=== PATIENT | female | born 1945 | race Caucasian/White ===

== ENCOUNTER 2017-03-23 07:19 | Day surgery (SDC) | payer MEDICARE ==
[2017-03-23] MEDS ORDERED: LIDOCAINE 2% MDV (20MG/ML) 20ML VIAL IV ONE (14:00)
[2017-03-23] MEDS ORDERED: BUPIVACAINE 0.5% W/EPI MPF 30 ML VIAL IVP ONE (14:00)
[2017-03-23] MEDS ORDERED: DEXAMETHASONE PRESERVATIVE FREE 10MG/ML VIAL IV ONE (14:00)
[2017-03-23] MEDS ORDERED: LIDOCAINE 1% W/EPI 1:200,000 MPF 30ML SQ ONE (14:00)
[2017-03-23] MEDS ORDERED: FENTANYL PF 100MCG/2ML VIAL IV ONE (14:00)
[2017-03-23] MEDS ORDERED: PROPOFOL 10 MG/ML VIAL IV ONE (14:00)
[2017-03-23] MEDS ORDERED: MIDAZOLAM HCL 2MG/2ML VIAL IV ONE (14:00)
--- NOTE | 2017-03-23 22:29 | Operative Note - Ferro ---
DATE OF SURGERY: 03/23/17 PREOPERATIVE DIAGNOSIS: CERVICAL SPONDYLOSIS WITHOUT MYELOPATHY, ICD-10 CODE = M47.812. OPERATION: RADIOFREQUENCY RHIZOTOMY BILATERAL CERVICAL FACETS 4-5 AND 5-6. SURGEON: THADDEUS AC D.O. ANESTHESIA: LOCAL SEDATION. ANESTHESIA PROVIDER: AAKASH NAVA CRNA. INDICATION: This patient presents with primary neck pain. Examination shows diffuse tenderness of the cervical spine. Range of motion does causes pain in the neck with extension. Diagnostic studies including standard imaging and MRIs showed diffuse multiple level spondylosis. A facet series with 75 to 90% pain control. Due to the failure of therapy and the success of the facet series, the patient presents for rhizotomy for more termite control representative relief. PROCEDURE: Intravenous line, vital sign monitoring, IV sedation. Prepped and draped in sterile technique. Under imaging, the facets at 4-5 and 5-6 were identified and marked bilaterally and infiltrated. A #22 gauge rhizotomy cannula positioned. Stimulation trials conducted. Rhizotomy burn performed. Local with anti-inflammatory into the site. Topical antibiotics. Sterile dressing applied. Will monitor and evaluate. cc: Dr. Juanita Brink JOB NUMBER: [id number] MTDD
== END 2017-03-23 10:00 | disposition home or self-care (01) ==
LOC: SUR 07:19
PROVIDERS: ATTEND Pain Medicine Interventional Pain Medicine
DX: M47.812 Spondylosis without myelopathy or radiculopathy, cervical region (principal); E03.9 Hypothyroidism, unspecified; E78.00 Pure hypercholesterolemia, unspecified

== ENCOUNTER 2019-02-07 06:00 | Day surgery (SDC) | payer MEDICARE ==
[2019-02-07] MEDS ORDERED: LIDOCAINE 2% MDV (20MG/ML) 20ML VIAL IV ONE (06:01)
[2019-02-07] MEDS ORDERED: PROPOFOL 10 MG/ML VIAL IV ONE (06:01)
[2019-02-07] MEDS ORDERED: MIDAZOLAM HCL 2MG/2ML VIAL IV ONE (06:01)
[2019-02-07] MEDS ORDERED: FENTANYL PF 100MCG/2ML VIAL IV ONE (06:01)
[2019-02-07] MEDS ORDERED: RINGERS SOLUTION,LACTATED 1,000 ML IV ONE (06:30)
[2019-02-07] MEDS ORDERED: LIDOCAINE 1% W/EPI 1:100,000 MDV 20 ML VIAL SQ ONE (07:42)
[2019-02-07] MEDS ORDERED: DEXAMETHASONE PRESERVATIVE FREE 10MG/ML VIAL SQ ONE (07:43)
[2019-02-07] MEDS ORDERED: BUPIVACAINE 0.5% W/EPI MPF 30 ML VIAL SQ ONE (07:43)
--- NOTE | 2019-02-09 09:00 | Operative Note ---
DATE OF SURGERY: 02/07/2019 PREOPERATIVE DIAGNOSIS: Cervical spondylosis without myelopathy, ICD10 code M47.812. OPERATION: Radiofrequency rhizotomy of bilateral cervical facets C2-3, 3-4, and 4-5. SURGEON: Tushar Ram, ANESTHESIA: Local with sedation. ANESTHESIA PROVIDER: Haris Burrell INDICATIONS: This patient presents with pain which is head and neck. Diagnostics showed endplate spurring and multilevel spondylosis. A facet series 75% pain control. Due to the failure of therapy and success of facet series, patient presents for rhizotomy for more long-term relief. PROCEDURE: Intravenous line, vital sign monitoring, IV sedation, prepped and draped in sterile technique. Under imaging with the patient prone, facet levels 2-3, 3-4, and 4-5 were identified and marked bilateral. Skin infiltrated. A 22- gauge rhizotomy cannula positioned. Stimulation trial was conducted. Rhizotomy burn performed. Local with antiinflammatory into the sites. Topical antibiotic and sterile dressing applied. Will monitor and evaluate. [facility]
== END 2019-02-07 08:29 | disposition home or self-care (01) ==
LOC: SUR 06:00
PROVIDERS: ATTEND Pain Medicine Interventional Pain Medicine
DX: M47.812 Spondylosis without myelopathy or radiculopathy, cervical region (principal); E78.00 Pure hypercholesterolemia, unspecified; M19.90 Unspecified osteoarthritis, unspecified site; G47.33 Obstructive sleep apnea (adult) (pediatric)
CPT/HCPCS: 64633; 64634 ×2; 01936; J1100; J3010; J7120

== ENCOUNTER 2019-08-29 07:55 | Day surgery (SDC) | payer MEDICARE ==
[2019-08-29] MEDS ORDERED: FENTANYL PF 100MCG/2ML VIAL IV ONE (07:56)
[2019-08-29] MEDS ORDERED: MIDAZOLAM HCL 2MG/2ML VIAL IV ONE (07:56)
[2019-08-29] MEDS ORDERED: PROPOFOL 10 MG/ML VIAL IV ONE (07:56)
[2019-08-29] MEDS ORDERED: LIDOCAINE 2% MDV (20MG/ML) 20ML VIAL IV ONE (07:56)
[2019-08-29] MEDS ORDERED: RINGERS SOLUTION,LACTATED 1,000 ML IV ONE (08:41)
[2019-08-29] MEDS ORDERED: DEXAMETHASONE PRESERVATIVE FREE 10MG/ML VIAL SQ ONE (09:09)
[2019-08-29] MEDS ORDERED: BUPIVACAINE 0.5% W/EPI MPF 30 ML VIAL SQ ONE (09:09)
[2019-08-29] MEDS ORDERED: LIDOCAINE 1% W/EPI 1:100,000 MDV 20 ML VIAL SQ ONE (09:09)
--- NOTE | 2019-08-29 09:58 | Operative Note - Ferro ---
DATE OF SURGERY: 08/29/2019 PREOPERATIVE DIAGNOSIS: CERVICAL SPONDYLOSIS WITHOUT MYELOPATHY, ICD-10 CODE M47.812. OPERATION: RADIOFREQUENCY RHIZOTOMY BILATERAL CERVICAL FACETS C2-C3, C3-C4, AND C4-C5. SURGEON: Tushar Ram D.O. ANESTHESIA: Local sedation. ANESTHESIA PROVIDER: YOKO Mcfarland CRNA INDICATION: This patient presents with primary neck pain. Diagnostics confirm multiple level spondylosis. Facet series 75% relief. Due to the failure of therapy and the success of the facet series, the patient presents for rhizotomy for more exterminator helper relief. PROCEDURE: The patient was positioned prone, sterile prep, sterile technique. Facet levels bilateral C2-C3, C3-C4, and C4-C5 were marked, infiltrated. A 22- gauge rhizotomy cannula was positioned, stimulation trial was conducted, rhizotomy burn 80 degrees 90 seconds at each site bilaterally. Local was infiltrated into the sites as the needle was removed. Topical antibiotic and sterile dressing was applied. She was transported to the Recovery Room stable. Will monitor and evaluate. JOB NUMBER: [id number] [facility]
== END 2019-08-29 09:59 | disposition home or self-care (01) ==
LOC: SUR 07:55
PROVIDERS: ATTEND Pain Medicine Interventional Pain Medicine
DX: M47.812 Spondylosis without myelopathy or radiculopathy, cervical region (principal); M19.90 Unspecified osteoarthritis, unspecified site; E78.00 Pure hypercholesterolemia, unspecified; E11.9 Type 2 diabetes mellitus without complications; G47.33 Obstructive sleep apnea (adult) (pediatric)
CPT/HCPCS: 64633; 64634 ×2; 01992; J1100; J3010; J7120